=== PATIENT | female | born 1955 | race Caucasian/White ===

== ENCOUNTER 2017-01-04 20:41 | Emergency (ER) | payer OTHER ==
[~2017-01-04] VITALS: Ht 165.1 cm; Wt 89.3 kg
[~2017-01-04 20:41] MED LIST: BUPR100T6
[2017-01-04 20:51] VITALS: BP 149/89
[2017-01-04] MEDS ORDERED: RANI150T4 PO (21:24)
[2017-01-04] MEDS ORDERED: CETI10TA24 PO (21:24)
[2017-01-04] MEDS ORDERED: GUAI1TBM PO (21:24)
[2017-01-04] MEDS ORDERED: FLUT9.9S INH (21:24)
[2017-01-04] MEDS ORDERED: OMEP-110 PO (21:24)
== END 2017-01-04 22:55 | disposition home or self-care (01) ==
LOC: ED 21:35
DX: L50.8 Other urticaria (principal); Z90.710 Acquired absence of both cervix and uterus
CPT/HCPCS: 99283

== ENCOUNTER → 2017-04-10 | Outpatient (CLI) | payer OTHER ==
[~2017-04-10] MED LIST changes: +CETI10TA24 PO; +FLUT9.9S INH; +GUAI1TBM PO; +OMEP-110 PO; +RANI150T4 PO
== END | disposition home or self-care (01) ==
LOC: CFH 11:53
PROVIDERS: ATTEND Family Medicine
DX: R92.2 Inconclusive mammogram (principal)
CPT/HCPCS: G0206

== ENCOUNTER 2018-12-11 21:05 | Inpatient (IN) | payer OTHER ==
[~2018-12-11] VITALS: Ht 165.1 cm; Wt 83.8 kg
[~2018-12-11 21:05] MED LIST changes: -GUAI1TBM PO; +GUAI1TBM11 PO
[2018-12-11 21:51] LABS: BASOPHILS # (AUTO) 0.02 x10^3/uL (0-0.1); BASOPHILS % (AUTO) 0 % (0-1); EOSINOPHILS # (AUTO) 0.17 x10^3/uL (0-0.4); EOSINOPHILS % (AUTO) 3 % (1-7); LYMPHOCYTES % (AUTO) 26 % (22-44); MD NO; MEAN CORPUSCULAR HEMOGLOBIN 30.5 pg (27.0-34.8); MEAN CORPUSCULAR HGB CONC 33.7 g/dL (32.4-35.8); MEAN CORPUSCULAR VOLUME 90.3 fL (80-100); MEAN PLATELET VOLUME 7.6 fL (7.4-10.4); MONOCYTES # (AUTO) 0.59 x10^3/uL (0.2-0.8); MONOCYTES % (AUTO) 9 % (2-9); NEUTROPHILS # (AUTO) 4.25 x10^3/uL (1.8-6.8); NEUTROPHILS % (AUTO) 62 % (42-75); PLATELET COUNT 271 x10^3/uL (130-400); RED BLOOD COUNT 3.93 x10^6/uL (3.82-5.3); RED CELL DISTRIBUTION WIDTH 13.9 % (9.6-15.2)
[2018-12-11 22:03] LABS: ALANINE AMINOTRANSFERASE 24 U/L (12-78); ALBUMIN 3.6 g/dL (3.4-5.0); ANION GAP 4 mmol/L (5-15); CALCIUM 8.4 mg/dL (8.5-10.1); CHLORIDE 111 mmol/L (98-107); CREATININE 0.94 mg/dL (0.55-1.02)
[2018-12-11 22:05] LABS: ALKALINE PHOSPHATASE 84 U/L (45-117); BILIRUBIN,TOTAL 0.3 mg/dL (0.2-1.0); TOTAL PROTEIN 6.6 g/dL (6.4-8.2)
--- NOTE | 2018-12-11 22:18 | NUR ---
PT PRESENTS TO ED WITH C/O UMBILICAL PAIN STARTING YESTERDAY WHICH HAS SINCE MOVED TO RIGHT LOWER ABD. PT DENIES N/V/D. PT STATES SHE IS NOT ALLERGIC TO CONTRAST OR IODINE, ONLY LOBSTER. EDMD BIAGI AWARE. CT AWARE. PT REPORTS SHE HAD BENIGN TUMOR REMOVED BETWEEN LEFT BREAST AND RIBS, STATES NO LYMPH NODES WERE REMOVED AND THIS WAS NOT A MASTECTOMY. EDMD OK'D USE OF PIV PLACED TO LEFT ARM. PT TO CT AT THIS TIME. NADN AT TRANSPORT.
[2018-12-11] MEDS ORDERED: OMNIPAQUE 350 MG/ML, 100ML BOTTLE ONE (22:29)
[2018-12-11 22:32] LABS: MICROSCOPIC AUTO
[2018-12-11 22:33] LABS: CULTURE INDICATED? YES
--- NOTE | 2018-12-11 22:54 | NUR ---
all results back, chart up for recheck. awaiting MD and dispo.
[2018-12-11] MEDS ORDERED: METRONIDAZOLE PMX 500MG/100ML 100 ML ONE (22:57)
[2018-12-11] MEDS ORDERED: METRONIDAZOLE PMX 500MG/100ML 100 ML IV ONE (23:00)
[2018-12-11] MEDS ORDERED: MORPHINE SULFATE 4 MG/ML, 1ML IVPush PRN ×2 (23:00→23:30)
[2018-12-11] MEDS ORDERED: ONDANSETRON 2MG/ML, 2ML IVPush ONE (23:00)
[2018-12-11] MEDS ORDERED: LEVOFLOXACIN/PMX 750MG/150ML IV ONE (23:00)
[2018-12-11] MEDS ORDERED: ONDANSETRON 2MG/ML, 2ML ONE (23:01)
[2018-12-11] MEDS ORDERED: MORPHINE SULFATE 4 MG/ML, 1ML ONE (23:02)
--- NOTE | 2018-12-11 23:09 | NUR ---
PT UPDATED WITH RESULTS AND POC BY EDMD TITUS. PT TOLERATED CT WELL WITH NO S/SX ADVERSE RXN. PT A&O, RESPS EVEN AND UNLABORED. REPORTS RIGHT LOWER ABD PAIN LEVEL 6/10 AT THIS TIME. PT MEDICATED PER EMAR, TOLERATED WELL. PER EDFL, NO BLOOD CX INDICATED PRIOR TO IV ABX. REPORT GIVEN TO GOKUL PAINTER WHO IS TO ASSUME CARE AT THIS TIME.
[2018-12-11] MEDS ORDERED: POTASSIUM CHLORIDE 20 MEQ in SODIUM CHLORIDE 0.9% 1,000 ML IV ONE (23:13)
[2018-12-11] MEDS ORDERED: RANI300C PO (23:15)
[2018-12-11] MEDS ORDERED: MELOXICAM PO (23:15)
[2018-12-11] MEDS ORDERED: CETI10CA PO (23:15)
--- NOTE | 2018-12-11 23:17 | NUR ---
PT REPORTS PAIN LEVEL NOW DOWN TO 3/10. PT A&O, RESPS EVEN AND UNLABORED. BP AND SPO2 MONITORS IN PLACE. CALL LIGHT IN REACH. REPORT GIVEN TO GOKUL PAINTER.
[2018-12-11] MEDS ORDERED: LEVOFLOXACIN/PMX 750MG/150ML 150 ML IV ONE (23:30)
[2018-12-11] MEDS ORDERED: ONDANSETRON 2MG/ML, 2ML IVPush PRN (23:30)
--- NOTE | 2018-12-11 23:34 | NUR ---
REPORT FROM JASEN HODGSON. ABX RUNNING. PT RESTING WAITING FOR BED ASSIGNMENT
[2018-12-11 23:53] VITALS: BP 133/84
[2018-12-12] MEDS ORDERED: BUPR-173 PO (00:31)
[2018-12-12 03:33] VITALS: BP 110/74
[2018-12-12] MEDS ORDERED: POTASSIUM CHLORIDE 20 MEQ in SODIUM CHLORIDE 0.45% 1,000 ML IV SCH (06:00)
[2018-12-12] MEDS ORDERED: BUPIVACAINE/PF-EPI 0.5% 1:200K ONE (06:52)
[2018-12-12] MEDS ORDERED: FENTANYL PF 250 MCG/5ML ONE (07:18)
[2018-12-12] MEDS ORDERED: MIDAZOLAM 1 MG/ML, 2ML ONE (07:18)
[2018-12-12] MEDS ORDERED: PROPOFOL 10 MG/ML, 20ML ONE (07:18)
[2018-12-12] MEDS ORDERED: ROCURONIUM 10MG/ML,5ML ONE (07:18)
[2018-12-12] MEDS ORDERED: SUCCINYLCHOLINE 20 MG/ML, 10ML ONE (07:19)
[2018-12-12] MEDS ORDERED: DEXAMETHASONE 4 MG/ML, 1ML ONE ×2 (07:35)
[2018-12-12] MEDS ORDERED: ONDANSETRON 2MG/ML, 2ML ONE (07:35)
[2018-12-12] MEDS ORDERED: CEFOTETAN PMX 2GM/50ML 50 ML ONE (07:35)
[2018-12-12] MEDS ORDERED: MORPHINE SULFATE 4 MG/ML, 1ML IVPush PRN (08:00)
[2018-12-12] MEDS ORDERED: PROMETHAZINE 25 MG/ML, 1ML IV PRN (08:00)
[2018-12-12] MEDS ORDERED: ONDANSETRON 2MG/ML, 2ML IV PRN (08:00)
[2018-12-12] MEDS ORDERED: FENTANYL PF 100 MCG/2ML IV PRN (08:00)
[2018-12-12] MEDS ORDERED: ACETAMINOPHEN 325 MG TABLET PO PRN (08:00)
[2018-12-12] MEDS ORDERED: LABETALOL 5MG/ML, 20ML IV PRN (08:00)
[2018-12-12] MEDS ORDERED: MEPERIDINE/PF 25MG/0.5ML IVPush PRN (08:00)
[2018-12-12] MEDS ORDERED: hydrALAzine 20 MG/ML, 1ML IV PRN (08:00)
[2018-12-12] MEDS ORDERED: OXYcodone 5 MG/5 ML ORAL.SOL UDC PO PRN (08:00)
[2018-12-12] MEDS ORDERED: HYDROmorphone 2 MG/ML, 1ML IVPush PRN (08:00)
[2018-12-12] MEDS ORDERED: BUPIVACAINE/PF-EPI 0.5% 1:200K INFIL ONE (08:02)
[2018-12-12] MEDS ORDERED: OXYcodone 5 MG/5 ML ORAL.SOL UDC ONE (08:38)
[2018-12-12] MEDS ORDERED: ACETAMINOPHEN 650 MG/20.3 ML UDC ONE (08:38)
[2018-12-12] MEDS ORDERED: OXYcodone/APAP 5/325MG TABLET PO PRN (09:00)
[2018-12-12] MEDS ORDERED: OXYC-302 PO (10:10)
[2018-12-12 13:28] VITALS: BP 134/82
[2018-12-12] MEDS ORDERED: ONDANSETRON 2MG/ML, 2ML IVPush PRN (14:00)
[2018-12-12] MEDS ORDERED: PROMETHAZINE 25 MG/ML, 1ML ONE (14:42)
[2018-12-12] MEDS ORDERED: PROMETHAZINE 25 MG/ML, 1ML IM PRN (15:00)
[2018-12-12] MEDS ORDERED: DIPHENHYDRAMINE 50 MG/ML, 1ML IVPush PRN (15:00)
[2018-12-12 19:59] VITALS: BP 127/77
[2018-12-13 00:06] VITALS: BP 108/68
[2018-12-13 04:30] VITALS: BP 118/72
[2018-12-13] MEDS ORDERED: POTASSIUM CHLORIDE 20 MEQ in SODIUM CHLORIDE 0.45% 1,000 ML IV SCH (06:00)
[2018-12-13 07:02] VITALS: BP 114/77
[2018-12-13 11:42] VITALS: BP 116/76
== END 2018-12-13 12:55 | disposition home or self-care (01) | DRG 343 ==
LOC: ED 22:55 → EDIP 23:13 → 4NOR 23:51 → DCLOUNGE 12-13 12:46
PROVIDERS: ADMIT Surgery; ATTEND Surgery
PROC: 0DTJ4ZZ Resection of Appendix, Percutaneous Endoscopic Approach (ICD-10-PCS; principal; 2018-12-12 07:30)
DX: K35.80 Unspecified acute appendicitis (principal); K59.00 Constipation, unspecified; K44.9 Diaphragmatic hernia without obstruction or gangrene; Z90.710 Acquired absence of both cervix and uterus; F32.9 Major depressive disorder, single episode, unspecified; Z88.1 Allergy status to other antibiotic agents; Z91.018 Allergy to other foods
CPT/HCPCS: 36415; 74177; 80053; 81001; 83690; 85025; 87086; 88304; 93005; 96374; 96375; 99285; G0378; J1100; J1956; J2250; J2405; J2550; J2704; J3010; J3480; Q9967; J0330; J1200; J3490; J7030

== ENCOUNTER → 2020-02-20 | Outpatient (CLI) | payer BC, OTHER ==
[~2020-02-20] MED LIST changes: +BUPR-173 PO; +CETI10CA PO; -CETI10TA24 PO; +CETI10TA26 PO; +MELOXICAM PO; +OXYC-302 PO; +RANI300C PO
== END | disposition home or self-care (01) ==
LOC: CFH 12:13
PROVIDERS: ATTEND Family Medicine
DX: K44.9 Diaphragmatic hernia without obstruction or gangrene (principal); M47.9 Spondylosis, unspecified
CPT/HCPCS: 74176

== ENCOUNTER 2020-08-01 07:17 | Emergency (ER) | payer BC ==
[~2020-08-01] VITALS: Ht 167.6 cm; Wt 70.0 kg
[~2020-08-01 07:17] MED LIST changes: -CETI10TA26 PO; +CETI10TA76 PO
[2020-08-01] MEDS ORDERED: CYCLOBENZAPRINE 10 MG TABLET ONE (07:51)
[2020-08-01] MEDS ORDERED: KETOROLAC 30 MG/1 ML ONE (07:51)
[2020-08-01] MEDS ORDERED: CYCLOBENZAPRINE 10 MG TABLET PO ONE (08:00)
[2020-08-01] MEDS ORDERED: KETOROLAC 30 MG/1 ML IM ONE (08:00)
[2020-08-01 08:09] LABS: BASOPHILS % (AUTO) 1 % (0-1); EOSINOPHILS % (AUTO) 2 % (1-7); LYMPHOCYTES % (AUTO) 34 % (22-44); MEAN CORPUSCULAR HEMOGLOBIN 31.9 pg (27.0-34.8); MEAN CORPUSCULAR HGB CONC 33.9 g/dL (32.4-35.8); MEAN PLATELET VOLUME 7.4 fL (7.4-10.4); MONOCYTES % (AUTO) 11 % (2-9); NEUTROPHILS % (AUTO) 53 % (42-75); PLATELET COUNT 287 x10^3/uL (130-400); RED BLOOD COUNT 3.99 x10^6/uL (3.82-5.3); RED CELL DISTRIBUTION WIDTH 13.2 % (9.6-15.2)
[2020-08-01 08:11] LABS: MD NO
[2020-08-01 08:19] LABS: ALBUMIN 3.4 g/dL (3.4-5.0); ANION GAP 4 mmol/L (5-15); CALCIUM 8.7 mg/dL (8.5-10.1); CHLORIDE 112 mmol/L (98-107)
[2020-08-01 08:24] LABS: ALANINE AMINOTRANSFERASE 26 U/L (12-78); ALKALINE PHOSPHATASE 57 U/L (45-117); BILIRUBIN,TOTAL 0.5 mg/dL (0.2-1.0); CREATININE 0.72 mg/dL (0.55-1.02); TROPONIN I < 0.015 ng/mL (0.000-0.045)
[2020-08-01 09:00] VITALS: BP 135/74
--- NOTE | 2020-08-01 09:23 | NUR ---
PT RESTING ON GURNEY AT THIS TIME, VSS, NAD NOTED . AWAITING LAB RESULTS
[2020-08-01 10:10] LABS: TROPONIN I < 0.015 ng/mL (0.000-0.045)
== END 2020-08-01 10:30 | disposition home or self-care (01) ==
LOC: ED 08:25
DX: R07.89 Other chest pain (principal); Z88.0 Allergy status to penicillin; Z88.8 Allergy status to other drugs, medicaments and biological substances; Z90.89 Acquired absence of other organs; Z90.710 Acquired absence of both cervix and uterus; Z79.899 Other long term (current) drug therapy
CPT/HCPCS: 36415; 71046; 80053; 84484; 85025; 85379; 93005; 96372; 99285; J1885